=== PATIENT | male | born 1975 | race Caucasian/White ===

== ENCOUNTER → 2016-11-30 | Outpatient (CLI) | payer OTHER | LOC: LAB 17:03 | DX: I10 Essential (primary) hypertension (principal); F41.9 Anxiety disorder, unspecified; K21.9 Gastro-esophageal reflux disease without esophagitis; E80.6 Other disorders of bilirubin metabolism ==

== ENCOUNTER → 2018-01-27 | Outpatient (CLI) | payer OTHER ==
[2018-01-27 10:45] LABS: BUN/CREATININE RATIO 22.1 (6.0-26.0); CALCIUM 9.2 mg/dL (8.4-10.2); POTASSIUM 3.8 mmol/L (3.6-5.0)
== END ==
LOC: LAB 10:04
PROVIDERS: Family Medicine
DX: Z00.00 Encounter for general adult medical examination without abnormal findings (principal); I10 Essential (primary) hypertension; K21.9 Gastro-esophageal reflux disease without esophagitis; F41.9 Anxiety disorder, unspecified; Z72.0 Tobacco use

== ENCOUNTER → 2018-02-14 | Outpatient (CLI) | payer OTHER | LOC: RAD 14:56 | DX: N50.811 Right testicular pain (principal) ==

== ENCOUNTER → 2020-07-18 | Outpatient (CLI) | payer BC ==
[2020-07-18 13:05] LABS: POTASSIUM 3.8 mmol/L (3.5-5.1)
[2020-07-18 13:07] LABS: CALCIUM 9.2 mg/dL (8.3-10.5)
== END ==
LOC: LAB 12:45
PROVIDERS: Family Medicine
DX: I10 Essential (primary) hypertension (principal)

== ENCOUNTER → 2020-11-28 | Day surgery (SDC) | payer BC | END | disposition home or self-care (01) | LOC: MSO 07:07 | DX: Z12.11 Encounter for screening for malignant neoplasm of colon (principal); Z80.0 Family history of malignant neoplasm of digestive organs; I10 Essential (primary) hypertension; K21.9 Gastro-esophageal reflux disease without esophagitis; F41.9 Anxiety disorder, unspecified; F17.220 Nicotine dependence, chewing tobacco, uncomplicated; Z79.899 Other long term (current) drug therapy | CPT/HCPCS: 00812; J2704; J3010; J7120 ==

== ENCOUNTER → 2021-10-06 | Outpatient (CLI) | payer BC ==
[2021-10-06 09:07] LABS: ALBUMIN 4.4 g/dL (3.5-5.0)
[2021-10-06 09:08] LABS: CALCIUM 9.9 mg/dL (8.3-10.5)
[2021-10-06 09:09] LABS: TOTAL PROTEIN 7.1 g/dL (6.4-8.3)
[2021-10-06 09:11] LABS: TOTAL BILIRUBIN 1.9 mg/dL (0.2-1.2)
== END ==
LOC: LAB 08:38
PROVIDERS: Family Medicine
DX: Z00.00 Encounter for general adult medical examination without abnormal findings (principal); Z12.5 Encounter for screening for malignant neoplasm of prostate; L85.3 Xerosis cutis; F41.9 Anxiety disorder, unspecified; I10 Essential (primary) hypertension; K21.9 Gastro-esophageal reflux disease without esophagitis; E80.4 Gilbert syndrome; K44.9 Diaphragmatic hernia without obstruction or gangrene; R61 Generalized hyperhidrosis; R63.5 Abnormal weight gain

== ENCOUNTER → 2022-04-27 | Outpatient (CLI) | payer BC | LOC: LAB 07:18 | DX: E80.4 Gilbert syndrome (principal); I10 Essential (primary) hypertension; E78.1 Pure hyperglyceridemia; R73.03 Prediabetes ==

== ENCOUNTER → 2023-04-18 | Outpatient (CLI) | payer BC ==
[2023-04-18 17:52] LABS: CALCIUM 10.1 mg/dL (8.3-10.5)
[2023-04-19 18:17] LABS: CREATININE OTHER SOURCE 44 mg/dL (47-110)
== END ==
LOC: LAB 17:12
PROVIDERS: Family Medicine
DX: Z23 Encounter for immunization (principal); I10 Essential (primary) hypertension; F41.1 Generalized anxiety disorder; Z53.20 Procedure and treatment not carried out because of patient's decision for unspecified reasons

== ENCOUNTER → 2023-07-15 | Outpatient (CLI) | payer BC ==
[2023-07-15 09:03] LABS: CALCIUM 9.8 mg/dL (8.3-10.5)
== END ==
LOC: LAB 08:43
PROVIDERS: Family Medicine
DX: I10 Essential (primary) hypertension (principal); G80.4 Ataxic cerebral palsy

== ENCOUNTER → 2024-07-30 | Outpatient (CLI) | payer OTHER ==
[2024-07-30 08:25] LABS: CALCIUM 10.3 mg/dL (8.3-10.5)
== END ==
LOC: LAB 08:03
PROVIDERS: Family Medicine
DX: I10 Essential (primary) hypertension (principal); E80.4 Gilbert syndrome

== ENCOUNTER 2024-08-17 03:06 | Emergency (ER) | payer OTHER ==
[~2024-08-17] VITALS: Ht 172.7 cm; Wt 84.1 kg
[2024-08-17] MEDS ORDERED: LISINOPRIL AND1 TA1 PO (03:26)
[2024-08-17] MEDS ORDERED: DULOXETINE30 MG PO (03:26)
[2024-08-17] MEDS ORDERED: PRILOSEC 20MG20 MG PO (03:26)
[2024-08-17] MEDS ORDERED: MEN'S 50 PLUS1 EACH PO (03:27)
[2024-08-17 03:55] LABS: ALBUMIN 4.3 g/dL (3.5-5.0); CALCIUM 9.5 mg/dL (8.3-10.5); TOTAL BILIRUBIN 0.7 mg/dL (0.2-1.2); TOTAL PROTEIN 7.1 g/dL (6.4-8.3)
[2024-08-17 04:00] LABS: BASO # 0.02 K/mm3 (0.02-0.10); EOS # 0.06 K/mm3 (0.04-0.40); EOS % 0.4 % (0.0-4.0); HEMATOCRIT 43.4 % (42.0-52.0); HEMOGLOBIN 15.1 g/dL (13.5-18.0); LYMPH# 1.73 K/mm3 (1.50-4.00); MEAN CELL VOLUME 89 fl (78-100); MEAN CORPUSCULAR HEMOGLOBIN 31 pg (27-31); MEAN CORPUSCULAR HGB CONC 35 g/dL (33-37); MEAN PLATELET VOLUME 8.7 fl (7.4-10.4); MONO # 0.83 K/mm3 (0.20-0.80); NEU # 13.02 K/mm3 (1.40-6.50); PLATELET COUNT 278 K/mm3 (130-400); RED CELL DISTRIBUTION WIDTH 11.9 % (11.5-14.5); WHITE BLOOD COUNT 15.7 K/mm3 (4.8-10.8)
[2024-08-17] MEDS ORDERED: Aspirin 325 MG TAB PO ONE (04:00)
[2024-08-17] MEDS ORDERED: Azithromycin 250 MG TAB PO ONE (04:30)
[2024-08-17] MEDS ORDERED: cefTRIAXone 1 G in Water For Injection,Sterile 10 ML IV ONE (04:30)
[2024-08-17] MEDS ORDERED: ZITHROMAX 250M250 MG PO (04:38)
[2024-08-17 04:50] VITALS: BP 138/82
== END 2024-08-17 04:51 | disposition home or self-care (01) ==
LOC: ED 03:06
PROVIDERS: Physician Assistant
DX: J18.9 Pneumonia, unspecified organism (principal); M25.512 Pain in left shoulder; M54.2 Cervicalgia
CPT/HCPCS: J0696